=== PATIENT | male | born 1950 | race Caucasian/White ===

== ENCOUNTER 2017-01-01 15:28 | Emergency (ER) | payer OTHER ==
[2017-01-01 16:09] VITALS: RESP 20; TEMP 97.9; O2SAT 97
[2017-01-01 16:26] LABS: BASO % 0.6 % (0.0-2.0); EOS # 0.3 K/uL (0.0-0.7); EOS % 4.8 % (0.0-4.0); HEMOGLOBIN 13.6 g/dL (12.0-18.0); LYMPH # 2.5 K/uL (1.0-4.3); LYMPH % 39.8 % (20.0-40.0); MEAN CELL VOLUME 81.3 fL (80.0-94.0); MEAN CORPUSCULAR HEMOGLOBIN 26.8 pg (27.0-31.0); MEAN PLATELET VOLUME 7.8 fL (7.2-11.7); MONO # 0.5 K/uL (0.0-0.8); MONO % 8.5 % (0.0-10.0); NEUT % 46.3 % (50.0-75.0); NRBC % 0.1 % (0.0-2.0); RBC 5.08 Mil/uL (4.40-5.90); RED CELL DISTRIBUTION WIDTH 14.4 % (11.5-14.5); WHITE BLOOD COUNT 6.4 K/uL (4.8-10.8)
[2017-01-01 16:29] LABS: URINE BILIRUBIN NEGATIVE (NEGATIVE); URINE BLOOD NEGATIVE (NEGATIVE); URINE CLARITY Clear (Clear); URINE COLOR Straw (YELLOW); URINE GLUCOSE (UA) NORMAL (Normal); URINE LEUKOCYTE ESTERASE NEG Leu/uL (Negative); URINE NITRATE NEGATIVE (NEGATIVE); URINE PROTEIN NEGATIVE (NEGATIVE); URINE UROBILINOGEN NORMAL mg/dL (0.2-1.0)
--- NOTE | 2017-01-01 16:33 | C.PDOC ---
History Of Present Illness Patient is a 66 y/o male, whose PMHx includes HTN, that presents to the ED for evaluation of headache since 6:00 this morning. Patient states that his blood pressure was 190/110 this morning, and took his Bisoprolol 5mg, and Diovan, but states his headache still continues. Pt states he is compliant with his blood pressure medication. Pt also complains of discomfort to the superior aspect of the left shoulder. Otherwise, denies any trauma, fall, weakness, numbness, dizziness, chest pain, shortness of breath, visual changes, nausea, vomiting, fever, chills, or any other associated symptoms at this time. Time Seen by Provider: 01/01/17 15:52 Chief Complaint (Nursing): High Blood Pressure History Per: Patient History/Exam Limitations: no limitations Onset/Duration Of Symptoms: Hrs Current Symptoms Are (Timing): Still Present Associated Symptoms: Headache. denies: Chest Pain, Dyspnea, Dizziness, Blurred Vision, Focal Weakness Recent travel outside of the [place]: No Additional History Per: Patient Past Medical History Reviewed: Historical Data, Nursing Documentation, Vital Signs Vital Signs: Last Vital Signs Temp 97.9 F 01/01/17 17:13 Pulse 68 01/01/17 17:13 Resp 20 01/01/17 17:13 BP 150/88 01/01/17 17:13 Pulse Ox 97 01/01/17 17:13 - Medical History PMH: HTN, Hypercholesterolemia Surgical History: Cholecystectomy Family History: States: No Known Family Hx - Social History Hx Alcohol Use: No Hx Substance Use: No - Immunization History Hx Tetanus Toxoid Vaccination: No Hx Influenza Vaccination: No Review Of Systems Except As Marked, All Systems Reviewed And Found Negative. Constitutional: Negative for: Fever, Chills Eyes: Negative for: Vision Change Cardiovascular: Negative for: Chest Pain, Palpitations, Edema, Light Headedness Respiratory: Negative for: Cough, Shortness of Breath Gastrointestinal: Negative for: Nausea, Vomiting, Abdominal Pain Musculoskeletal: Positive for: Shoulder Pain (left) Neurological: Positive for: Headache. Negative for: Weakness, Numbness, Dizziness Physical Exam - Physical Exam Appears: Non-toxic, No Acute Distress Skin: Normal Color, Warm, Dry Head: Atraumatic, Normacephalic Eye(s): bilateral: Normal Inspection, EOMI Neck: Normal ROM, Supple Chest: Symmetrical, No Tenderness Cardiovascular: Rhythm Regular, No Murmur Respiratory: Normal Breath Sounds, No Accessory Muscle Use, No Rales, No Rhonchi , No Wheezing Gastrointestinal/Abdominal: Soft, No Tenderness Extremity: Normal ROM, No Tenderness, Capillary Refill (< 2 sec.), No Deformity , No Swelling Neurological/Psych: Oriented x3, Normal Speech, Normal Cognition, Other (neuro intact) ED Course And Treatment - Laboratory Results Result Diagrams: 01/01/17 16:23 01/01/17 16:23 Lab Interpretation: No Acute Changes ECG: Interpreted By Nh ECG Rhythm: Sinus Rhythm, ST/T Changes (inversions I, AVL) ECG Interpretation: No Acute Changes O2 Sat by Pulse Oximetry: 97 (on RA) Pulse Ox Interpretation: Normal - CT Scan/US CT Head Other Rad Studies (CT/US): Read By Radiologist, Radiology Report Reviewed CT/US Interpretation: Accession No. : [id number]. Patient Name / ID : NEELA Robertson / [id number]. Exam Date : 01/01/2017 16:43:14 ( Approved ). Study Comment : Sex / Age : M / 66Y. Creator : BOB BEARD MD. Dictator : BOB BEARD MD. Administration Manager : Detonator Maker : BOB BEARD MD. Approver2 : Report Date : 01/01/2017 16:45:58. My Comment : . PROCEDURE: CT HEAD WITHOUT CONTRAST. HISTORY: R/O Bleed. COMPARISON: None available. TECHNIQUE : Axial computed tomography images were obtained through the head/brain without intravenous contrast. Radiation dose: Total exam DLP = 786.53 MGy-cm. This CT exam was performed using one or more of the following dose reduction techniques: Automated exposure control, adjustment of the mA and/or kV according to patient size, and/or use of iterative reconstruction technique. FINDINGS: HEMORRHAGE: No intracranial hemorrhage. BRAIN: There are mild chronic microangiopathic changes. There is no mass, mass effect or abnormal extra-axial fluid collection. VENTRICLES: There is mild age-related global parenchymal volume loss and proportionate enlargement of the ventricles and cortical sulci. CALVARIUM: The skull base and calvarium are normal. PARANASAL SINUSES: Predominantly clear. MASTOID AIR CELLS: Predominantly clear. OTHER FINDINGS: None. IMPRESSION: No acute intracranial abnormality. Mild age-related global parenchymal volume loss and mild chronic microangiopathic changes. Progress Note: Labs, head CT, EKG ordered and reviewed. Reevaluation Time: 17:09 Reassessment Condition: Improved - Physician Consult Information Time Consulting Physician Contacted: 17:13 Physician Contacted: Jeanette Theodore Outcome Of Conversation: He will follow up with the patient in the office tomorrow. Gilmar states that he is stressed over the fact that his brother recently had a stroke in [place]. he is requesting a mild anti-anxiety medication. Dr Theodore agrees to giving a prescription for Xanax. Disposition Counseled Patient/Family Regarding: Studies Performed, Diagnosis, Need For Followup, Rx Given - Disposition Referrals: Jeanette Theodore MD [Staff Provider] - Disposition: HOME/ ROUTINE Disposition Time: 17:23 Condition: IMPROVED Prescriptions: ALPRAZolam [Xanax] 0.25 mg PO TID PRN #10 tab PRN Reason: Anxiety Instructions: Hypertension (ED), Anxiety (ED) - Clinical Impression Clinical Impression: Hypertension, Anxiety - Scribe Statement The provider has reviewed the documentation as recorded by the Osmin Dong All medical record entries made by the Rohitibcarlos were at my direction and personally dictated by me. I have reviewed the chart and agree that the record accurately reflects my personal performance of the history, physical exam, medical decision making, and the department course for this patient. I have also personally directed, reviewed, and agree with the discharge instructions and disposition.
[2017-01-01 16:37] LABS: ALB/GLOB RATIO 1.1 (1.0-2.1); AST/SGOT 25 U/L (17-59); GFR AFRICAN-AMERICAN > 60; GFR NON-AFRICAN AMERICAN > 60
[2017-01-01 16:38] LABS: ALT/SGPT 34 U/L (21-72); BLOOD UREA NITROGEN 14 mg/dL (9-20); CALCIUM 9.4 mg/dl (8.6-10.4)
--- NOTE | 2017-01-01 16:47 | CT ---
PROCEDURE: CT HEAD WITHOUT CONTRAST. HISTORY: R/O Bleed COMPARISON: None available. TECHNIQUE: Axial computed tomography images were obtained through the head/brain without intravenous contrast. Radiation dose: Total exam DLP = 786.53 MGy-cm. This CT exam was performed using one or more of the following dose reduction techniques: Automated exposure control, adjustment of the mA and/or kV according to patient size, and/or use of iterative reconstruction technique. FINDINGS: HEMORRHAGE: No intracranial hemorrhage. BRAIN: There are mild chronic microangiopathic changes. There is no mass, mass effect or abnormal extra-axial fluid collection. VENTRICLES: There is mild age-related global parenchymal volume loss and proportionate enlargement of the ventricles and cortical sulci. CALVARIUM: The skull base and calvarium are normal. PARANASAL SINUSES: Predominantly clear. MASTOID AIR CELLS: Predominantly clear. OTHER FINDINGS: None. IMPRESSION: No acute intracranial abnormality. Mild age-related global parenchymal volume loss and mild chronic microangiopathic changes.
[2017-01-01 17:14] VITALS: BP 150/88; PULSE 68
--- NOTE | 2017-01-02 14:02 | CARD ---
APPROVED REPORT EKG Measurement Heart [id number] ID [id number] <Conclusion> Normal sinus rhythm Possible Left atrial enlargement T wave abnormality, consider lateral ischemia Abnormal ECG
== END 2017-01-01 17:28 | disposition home or self-care (01) ==
LOC: C.ER 15:28
DX: I10 Essential (primary) hypertension (principal); F41.9 Anxiety disorder, unspecified

== ENCOUNTER 2017-07-04 01:25 | Inpatient (IN) | payer MEDICARE, OTHER ==
--- NOTE | 2017-07-04 02:17 | C.PDOC ---
History Of Present Illness 66 year old male presents to the ED for evaluation of fever. Patient states his temperature was 100.6 and 100.8 at home. He also reports urinary frequency. Patient has history of Diabetes and states he has been compliant with his medications, but does not regularly check his finger stick. Patient denies ear pain, sore throat, cough. Time Seen by Provider: 07/04/17 02:06 Chief Complaint (Nursing): Fever History Per: Patient History/Exam Limitations: no limitations Onset/Duration Of Symptoms: Hrs Current Symptoms Are (Timing): Still Present Associated Symptoms: Fever. denies: Sore Throat, Cough Ear Symptoms: Bilateral: None Additional History Per: Patient Past Medical History Reviewed: Historical Data, Nursing Documentation, Vital Signs Vital Signs: Last Vital Signs Temp 99.1 F 07/04/17 01:33 Pulse 108 H 07/04/17 01:33 Resp 16 07/04/17 01:33 BP 149/81 07/04/17 01:33 Pulse Ox 97 07/04/17 03:14 - Medical History PMH: Diabetes, HTN, Hypercholesterolemia Surgical History: Cholecystectomy Family History: States: Unknown Family Hx - Social History Hx Alcohol Use: No Hx Substance Use: No - Immunization History Hx Tetanus Toxoid Vaccination: No Hx Influenza Vaccination: No Review Of Systems Constitutional: Positive for: Fever ENT: Negative for: Ear Pain, Throat Pain Respiratory: Negative for: Cough Genitourinary: Positive for: Frequency Physical Exam - Physical Exam Appears: Non-toxic, No Acute Distress Skin: Normal Color, Warm, Dry Head: Atraumatic, Normacephalic Eye(s): bilateral: Normal Inspection Ear(s): Bilateral: Normal Nose: Normal, No Discharge Oral Mucosa: Moist Throat: Normal, No Erythema, No Exudate Neck: Supple Chest: Symmetrical, No Deformity, No Tenderness Cardiovascular: Rhythm Regular, No Murmur Respiratory: Normal Breath Sounds, No Rales, No Rhonchi, No Wheezing, Other ( discomfort to left lower rib with inspiration, increased egophony ) Extremity: Normal ROM, Capillary Refill (less than 2 seconds ) Neurological/Psych: Oriented x3, Normal Speech, Normal Cognition Gait: Steady ED Course And Treatment - Laboratory Results Result Diagrams: 07/04/17 02:38 07/04/17 02:38 Lab Interpretation: Abnormal (+ leukocytosis with L shift, flu swab NEG) ECG: Interpreted By Me ECG Rhythm: Sinus Rhythm ECG Interpretation: Normal Rate From EC O2 Sat by Pulse Oximetry: 97 (on RA) Pulse Ox Interpretation: Normal - Radiology CXR: Interpreted by Me CXR Interpretation: Yes: No Acute Disease, Other (blunted L CF angle) Progress Note: Bloodwork, UA, CXR, EKG, Flu A/B swab ordered and reviewed. IV Fluids administered. 0300: Rocephin, Azithromycin IV Reevaluation Time: 03:12 Reassessment Condition: Improved - Physician Consult Information Outcome Of Conversation: 0315: d/w Dr. Theodore ok to admit. Medical Decision Making Medical Decision Making: probable early LLL PNA considering blunted L CP angle. leukocytosis and L-shift concerning in elderly DM, empiric abx started. Disposition Doctor Will See Patient In The: Hospital Counseled Patient/Family Regarding: Studies Performed, Diagnosis - Disposition Disposition: HOSPITALIZED Disposition Time: 03:14 Condition: GOOD Forms: [facility] (Greenlandic) - Clinical Impression Clinical Impression: Pneumonia, Diabetes - Scribe Statement The provider has reviewed the documentation as recorded by the Scribe (Ciera Dong) Provider Attestation: All medical record entries made by the Scribe were at my direction and personally dictated by me. I have reviewed the chart and agree that the record accurately reflects my personal performance of the history, physical exam, medical decision making, and the department course for this patient. I have also personally directed, reviewed, and agree with the discharge instructions and disposition.
[2017-07-04] MEDS ORDERED: Sodium Chloride 0.9% 1,000 ML IV STA (02:18)
[2017-07-04 02:45] LABS: BASO % 0.3 % (0.0-2.0); EOS # 0.1 K/uL (0.0-0.7); EOS % 0.5 % (0.0-4.0); HEMOGLOBIN 14.7 g/dL (12.0-18.0); LYMPH # 1.4 K/uL (1.0-4.3); LYMPH % 10.9 % (20.0-40.0); MEAN CELL VOLUME 81.5 fL (80.0-94.0); MEAN CORPUSCULAR HEMOGLOBIN 27.3 pg (27.0-31.0); MEAN CORPUSCULAR HGB CONC 33.5 g/dL (33.0-37.0); MEAN PLATELET VOLUME 7.5 fL (7.2-11.7); MONO # 0.7 K/uL (0.0-0.8); MONO % 5.5 % (0.0-10.0); NEUT # 10.6 K/uL (1.8-7.0); NEUT % 82.8 % (50.0-75.0); NRBC % 0.1 % (0.0-2.0); RBC 5.37 Mil/uL (4.40-5.90); RED CELL DISTRIBUTION WIDTH 14.1 % (11.5-14.5); WHITE BLOOD COUNT 12.8 K/uL (4.8-10.8)
[2017-07-04 02:45] LABS: URINE BILIRUBIN NEGATIVE (NEGATIVE); URINE BLOOD 1+ (NEGATIVE); URINE CLARITY Clear (Clear); URINE COLOR Yellow (YELLOW); URINE GLUCOSE (UA) NORMAL (Normal); URINE LEUKOCYTE ESTERASE NEG Leu/uL (Negative); URINE NITRATE NEGATIVE (NEGATIVE); URINE PROTEIN NEGATIVE (NEGATIVE); URINE UROBILINOGEN NORMAL mg/dL (0.2-1.0)
[2017-07-04] MEDS ORDERED: Sodium Chloride 0.9% 1,000 ML ONE (02:49)
[2017-07-04 02:55] LABS: CALCIUM 8.9 mg/dl (8.6-10.4); GFR AFRICAN-AMERICAN > 60; GFR NON-AFRICAN AMERICAN > 60
[2017-07-04 03:05] LABS: B-TYPE NATRIURETIC PEPTIDE 81.3 pg/mL (0-900)
[2017-07-04 03:06] LABS: ALB/GLOB RATIO 1.2 (1.0-2.1); ALBUMIN 4.4 g/dL (3.5-5.0); ALT/SGPT 37 U/L (21-72); AST/SGOT 56 U/L (17-59); BLOOD UREA NITROGEN 16 mg/dL (9-20)
[2017-07-04] MEDS ORDERED: cefTRIAXone IV 1 gm in Dextros 50 ML IV ONE (03:09)
[2017-07-04] MEDS ORDERED: Azithromycin 500 MG in Sodium Chloride 0.9% 250 ML IV STA (03:09)
[2017-07-04 04:37] VITALS: RESP 20
--- NOTE | 2017-07-04 08:09 | RAD ---
PROCEDURE: CHEST RADIOGRAPH, 1 VIEW HISTORY: SOB COMPARISON: 06/29/2011 FINDINGS: LUNGS: No consolidation PLEURA: No pneumothorax. Minimal left costophrenic angle pleural fluid and/or pleural thickening suggested -an interval change CARDIOVASCULAR: Mild cardiomegaly pulmonary vasculature appears normal OSSEOUS STRUCTURES: Lateral shoulder mild arthrosis VISUALIZED UPPER ABDOMEN: Normal. OTHER FINDINGS: None. IMPRESSION: Interval left costophrenic angle minimal pleural fluid and/or pleural thickening. No consolidation to suggest infiltrate at this time. Clinical follow-up recommended Mild cardiomegaly
[2017-07-04] MEDS: (Novolog) Insulin Aspart, Recombinant 100 u/ml 10 ml vial SC SCH ×3 (08:56→18:17)
[2017-07-04] MEDS: Pantoprazole 40 mg EC Tab PO SCH (10:35)
[2017-07-04] MEDS: Enoxaparin 40 mg Syringe SC SCH (10:37)
[2017-07-05] MEDS ORDERED: Azithromycin 500mg/250ML NS 500 MG/250 ML BAG IVPB SCH (04:00)
--- NOTE | 2017-07-05 04:06 | HP ---
HISTORY OF PRESENT ILLNESS: This is a 66-year-old [place] male with history of multiple medical problems, presented to Emergency Room with symptoms of fever and chills. The patient was evaluated in Emergency Room and he was found to have leukocytosis as well as possible left lower lobe infiltration/pleural effusion. The patient was admitted for further management after he was started on IV antibiotics. Other review of systems negative. ALLERGIES: NO KNOWN ALLERGY. MEDICATIONS: As per MAR. PAST MEDICAL HISTORY: Hypertension, type 2 diabetes mellitus, hypercholesterolemia. SOCIAL HISTORY: No history of smoking, EtOH or substance abuse. FAMILY HISTORY: Noncontributory. PHYSICAL EXAMINATION: GENERAL: Patient was in bed, not in any cardiopulmonary distress. VITAL SIGNS: Initially, temperature was 100.8, blood pressure 137/79, respiratory rate 20 and pulse 85. HEENT: Pupils equal, reactive to light. Normal-appearing mucosa of the conjunctivae, oropharynx and nasal membrane mucosa. NECK: Supple. No JVD. No carotid bruit. No lymph node. No thyromegaly. CHEST AND LUNGS: Bilateral symmetrical expansion. Good air exchange. No rales. No rhonchi. CARDIOVASCULAR SYSTEM: PMI not localized. S1, S2. No additional sounds. ABDOMEN: Normoactive bowel sounds. No tenderness. No organomegaly. No masses. EXTREMITIES: No cyanosis, no clubbing, no edema. CENTRAL NERVOUS SYSTEM: Alert, awake, oriented x3. No neurological deficit could be appreciated. ASSESSMENT: 1. Sepsis. 2. Possible left lower lobe infiltrate. 3. Type 2 diabetes mellitus. 4. Hypertension. 5. Hypercholesterolemia. PLAN: Continue current IV antibiotics. We will add Tamiflu 75 mg twice a day. We will check CT of chest as the chest x-ray findings are not conclusive. Jeanette Theodore MD
[2017-07-05] MEDS ORDERED: DiphenhydrAMINE 12.5 mg/5 ml LIQ UD (5 ml) PO ONE (05:24)
[2017-07-05 07:15] LABS: BASO % 0.5 % (0.0-2.0); EOS # 0.2 K/uL (0.0-0.7); EOS % 2.6 % (0.0-4.0); HEMOGLOBIN 13.9 g/dL (12.0-18.0); LYMPH # 2.9 K/uL (1.0-4.3); LYMPH % 41.6 % (20.0-40.0); MEAN CELL VOLUME 81.9 fL (80.0-94.0); MEAN CORPUSCULAR HEMOGLOBIN 27.7 pg (27.0-31.0); MEAN CORPUSCULAR HGB CONC 33.8 g/dL (33.0-37.0); MEAN PLATELET VOLUME 7.5 fL (7.2-11.7); MONO # 0.7 K/uL (0.0-0.8); MONO % 9.4 % (0.0-10.0); NEUT # 3.2 K/uL (1.8-7.0); NEUT % 45.9 % (50.0-75.0); NRBC % 0.1 % (0.0-2.0); RBC 5.02 Mil/uL (4.40-5.90); RED CELL DISTRIBUTION WIDTH 14.2 % (11.5-14.5); WHITE BLOOD COUNT 7.1 K/uL (4.8-10.8)
[2017-07-05 07:43] LABS: ALBUMIN 3.8 g/dL (3.5-5.0); BLOOD UREA NITROGEN 18 mg/dL (9-20); CALCIUM 8.7 mg/dl (8.6-10.4); GFR AFRICAN-AMERICAN > 60; GFR NON-AFRICAN AMERICAN > 60
[2017-07-05 07:44] LABS: ALB/GLOB RATIO 1.2 (1.0-2.1); ALT/SGPT 47 U/L (21-72); AST/SGOT 30 U/L (17-59)
[2017-07-05] MEDS: (Novolog) Insulin Aspart, Recombinant 100 u/ml 10 ml vial SC SCH ×3 (08:06→17:10)
[2017-07-05] MEDS: Pantoprazole 40 mg EC Tab PO SCH ×2 (11:20→12:24)
[2017-07-05] MEDS: Enoxaparin 40 mg Syringe SC SCH (11:20)
[2017-07-05] MEDS ORDERED: Iodixanol 320 MG/ML 100 ML BOTTLE IV ONE (12:38)
--- NOTE | 2017-07-05 14:35 | CT ---
CT chest with IV contrast Indication: Pneumonia Technique: Contiguous axial images were obtained through the chest with intravenous contrast enhancement. Sagittal and coronal reconstructions were generated and reviewed. This CT exam was performed using 1 or more of the falling dose reduction techniques: Automated exposure control, adjustment of the MAA and/or kV according to patient size, and/or use of iterative reconstruction technique. IV Contrast: 100 mL Visipaque Radiation dose (DLP): 521.59 MGy-cm. Comparison: Chest x-ray performed 07/04/17 Findings: Visualized portions of the inferior thyroid gland appear unremarkable. The mediastinal and hilar vascular structures appear within normal limits. The heart appears within normal limits of size. No focal consolidation. No pleural effusion. No pneumothorax. No suspicious pulmonary nodules measuring greater than 5 mm. Small hiatal hernia. Cholecystectomy. Partially imaged 15 mm low-density lesion, left kidney ; possibly cyst. Bilateral gynecomastia. Degenerative changes of the spine. Impression: No focal consolidation. No pleural effusion. No pneumothorax. Additional findings as above.
[2017-07-05 16:19] VITALS: BP 152/80; PULSE 70; TEMP 98; O2SAT 97
[2017-07-05] MEDS ORDERED: Influenza Vaccine 60 mcg/0.5 mL SYR (4YR UP) IM ONE (18:30)
[2017-07-05] MEDS ORDERED: Pneumococcal 23-Valent Vaccine IM ONE (18:30)
[2017-07-06] MEDS ORDERED: Azithromycin 500 MG in Sodium Chloride 0.9% 250 ML IVPB SCH (04:00)
[2017-07-06] MEDS ORDERED: Pneumococcal 23-Valent Vaccine IM ONE (10:00)
[2017-07-06] MEDS ORDERED: Influenza Vaccine 60 mcg/0.5 mL SYR (4YR UP) IM ONE (10:00)
--- NOTE | 2017-07-06 23:06 | DS ---
REASON FOR ADMISSION: A 66-year-old Bangladeshi male with history of hypertension, hypercholesterolemia, type 2 diabetes mellitus was admitted for fever and chills. Initial impression and chest x-ray of emergency room were suspicion of left lower lobe infiltrate. COURSE OF HOSPITALIZATION: The patient was admitted to medical floor after he was started on Rocephin and azithromycin. The patient did not have any respiratory symptoms or cough or shortness of breath. Other than the fever and chills that he had at home and broke with antipyretics, the patient did not have any other symptoms. The patient had a CAT scan of the chest done that did not show any infiltration or consolidation of the lungs. The patient was discharged home to continue Augmentin for 5 more days and resume his preadmission medications. FINAL DIAGNOSES: 1. Viral syndrome. 2. Hypertension. 3. Type 2 diabetes mellitus. 4. Hypercholesterolemia. [facility] MD Arben
== END 2017-07-05 18:50 | disposition home or self-care (01) | DRG 195 ==
LOC: C.ER 01:25 → C.3T 03:10
PROVIDERS: ADMIT Internal Medicine; ATTEND Internal Medicine
DX: J18.9 Pneumonia, unspecified organism (principal); D72.829 Elevated white blood cell count, unspecified; R50.81 Fever presenting with conditions classified elsewhere; E11.9 Type 2 diabetes mellitus without complications; E78.00 Pure hypercholesterolemia, unspecified; I10 Essential (primary) hypertension; R35.0 Frequency of micturition

== ENCOUNTER 2017-07-23 17:34 | Emergency (ER) | payer MEDICARE ==
[2017-07-23 17:43] VITALS: O2SAT 96
--- NOTE | 2017-07-23 19:35 | C.PDOC ---
History Of Present Illness 66 year old male with a PMHx of HTN and Diabetes presents to the ED with complaints of intermittent low grade fevers for 1 week (around 99-100) and cough. Patient notes a T-max today of 101 and took a tablet of Augmentin he had left over. Prior temperatures were measured at 99.8. Patient complains of headache also. Patient was recently admitted to hospital on 07/03/2017 for Pneumonia and discharged home. Patient had improvement of symptoms. Sugar was 140 at home. Patient was instructed to come to ED today by pmd to check for flu. Patient denies chills, shortness of breath, chest pain, or other complaints at this time. Time Seen by Provider: 07/23/17 18:30 Chief Complaint (Nursing): Fever History Per: Patient History/Exam Limitations: no limitations Onset/Duration Of Symptoms: Days (1 week), Intermittent Episodes Current Symptoms Are (Timing): Still Present Location Of Pain: Headache Sick Contacts (Context): None Associated Symptoms: Fever, Cough. denies: Neck Pain, Vomiting, Diarrhea Ear Symptoms: Bilateral: None Recent travel outside of the [place]: No Additional History Per: Prior Records Past Medical History Reviewed: Historical Data, Nursing Documentation, Vital Signs Vital Signs: Last Vital Signs Temp 98.7 F 07/23/17 21:53 Pulse 83 07/23/17 21:53 Resp 18 07/23/17 21:53 BP 118/77 07/23/17 21:53 Pulse Ox 96 07/25/17 19:28 - Medical History PMH: Diabetes, HTN, Hypercholesterolemia Surgical History: Cholecystectomy Family History: States: Unknown Family Hx - Social History Hx Alcohol Use: No Hx Substance Use: No - Immunization History Hx Tetanus Toxoid Vaccination: No Hx Influenza Vaccination: No Review Of Systems Constitutional: Positive for: Fever. Negative for: Chills Cardiovascular: Negative for: Chest Pain Respiratory: Positive for: Cough. Negative for: Shortness of Breath Gastrointestinal: Negative for: Vomiting, Diarrhea Musculoskeletal: Negative for: Neck Pain Neurological: Positive for: Headache. Negative for: Weakness, Numbness, Dizziness Physical Exam - Physical Exam Appears: Non-toxic, No Acute Distress Skin: Warm, Dry, No Rash Head: Atraumatic, Normacephalic, No Tenderness Eye(s): bilateral: Normal Inspection, PERRL, EOMI Oral Mucosa: Moist Neck: Normal ROM, Supple, Other (no meningeal signs ) Cardiovascular: No Murmur, Other (patient is tachycardic ) Respiratory: No Rales, No Rhonchi, No Wheezing, Other (clear to auscultation bilaterally ) Gastrointestinal/Abdominal: Soft, No Tenderness, No Distention, No Guarding, No Rebound Extremity: Normal ROM, No Tenderness Neurological/Psych: Oriented x3, Normal Cranial Nerves, No Cerebellar Signs ED Course And Treatment - Laboratory Results Result Diagrams: 07/23/17 20:38 07/23/17 20:38 O2 Sat by Pulse Oximetry: 96 (RA) Pulse Ox Interpretation: Normal - Other Rad CXR X-Ray: Viewed By Me, Read By Radiologist Interpretation: CLINICAL HISTORY: 66 years old, male; Signs and symptoms; Cough and fever; Symptoms not specified; Additional info: Cougb fever. TECHNIQUE: Frontal and lateral views of the chest. COMPARISON: No relevant prior studies available. FINDINGS: Lungs: There is mild interstitial prominence bilaterally Coarse linear opacities are noted at both lung. bases. Pleural space: There is bilateral pleural thickening. No pneumothorax. Heart: Unremarkable. No cardiomegaly. Mediastinum: Unremarkable. Bones/joints: Unremarkable. IMPRESSION: Abnormal prominence of interstitial markings bilaterally with patchy atelectasis/pneumonia at both. bases. Progress Note: CXR and flu swab were ordered. Patient was given Tylenol. Medical Decision Making Medical Decision Making: Dr Theodore paged for second time 800 pm [address] Theodore, request official read of cxr, sts pt had neg ct chest last visit. discussed with Dr Theodore, will start pt on levaquin, f/u with him Disposition Discussed With .: Jeanette Theodore Doctor Will See Patient In The: Office Counseled Patient/Family Regarding: Studies Performed, Diagnosis, Need For Followup, Rx Given - Disposition Referrals: Jeanette Theodore MD [Staff Provider] - Disposition: HOME/ ROUTINE Disposition Time: 21:42 Condition: STABLE Additional Instructions: Please stop taking antibiotics that you have at home. Take Levaquin in stead. Follow up with Dr Theodore in 1-2 days. Take Tylenol for fever over 100.4 every 4- 6 hours. Prescriptions: Levofloxacin [Levaquin] 750 mg PO DAILY #5 tablet Instructions: Community Acquired Pneumonia (ED) Forms: [facility] (Spanish), General Discharge Instructions - Clinical Impression Clinical Impression: Pneumonia - PA / NATURAL REMEDY CONSULTANT / Resident Statement MD/DO has reviewed & agrees with the documentation as recorded. - Scribe Statement The provider has reviewed the documentation as recorded by the Scribcarlos Harrison All medical record entries made by the Rohitibe were at my direction and personally dictated by me. I have reviewed the chart and agree that the record accurately reflects my personal performance of the history, physical exam, medical decision making, and the department course for this patient. I have also personally directed, reviewed, and agree with the discharge instructions and disposition.
[2017-07-23 19:56] VITALS: RESP 18
[2017-07-23] MEDS ORDERED: cefTRIAXone IV 1 gm in Dextros 50 ML IV STA (19:59)
[2017-07-23 20:52] LABS: BASO % 0.8 % (0.0-2.0); EOS # 0.1 K/uL (0.0-0.7); EOS % 1.4 % (0.0-4.0); LYMPH # 1.3 K/uL (1.0-4.3); LYMPH % 25.6 % (20.0-40.0); MEAN CELL VOLUME 81.4 fL (80.0-94.0); MEAN CORPUSCULAR HEMOGLOBIN 27.7 pg (27.0-31.0); MEAN CORPUSCULAR HGB CONC 34.1 g/dL (33.0-37.0); MEAN PLATELET VOLUME 7.6 fL (7.2-11.7); MONO # 0.7 K/uL (0.0-0.8); MONO % 14.1 % (0.0-10.0); NEUT % 58.1 % (50.0-75.0); NRBC % 0.1 % (0.0-2.0); RBC 5.05 Mil/uL (4.40-5.90); RED CELL DISTRIBUTION WIDTH 14.1 % (11.5-14.5); WHITE BLOOD COUNT 5.1 K/uL (4.8-10.8)
[2017-07-23 20:58] LABS: ALB/GLOB RATIO 1.2 (1.0-2.1); ALT/SGPT 51 U/L (21-72); AST/SGOT 31 U/L (17-59); BLOOD UREA NITROGEN 15 mg/dL (9-20); CALCIUM 8.7 mg/dl (8.6-10.4); GFR AFRICAN-AMERICAN > 60; GFR NON-AFRICAN AMERICAN > 60
[2017-07-23 21:53] VITALS: BP 118/77; PULSE 83; TEMP 98.7
--- NOTE | 2017-07-24 09:42 | RAD ---
Chest x-ray two views History: Cough and fever. Comparison: None available. Findings: Patchy consolidative changes at both lung bases with associated small right pleural effusion. Tortuous ectatic aorta. Mild cardiomegaly. Surgical clips in the upper abdomen. Impression: Patchy consolidative changes at both lung bases with associated small right pleural effusion. Tortuous ectatic aorta. Mild cardiomegaly.
== END 2017-07-23 21:58 | disposition home or self-care (01) ==
LOC: C.ER 17:34
DX: J18.9 Pneumonia, unspecified organism (principal)